=== PATIENT | male | born 1950 | race Caucasian/White ===

== ENCOUNTER → 2023-07-25 10:05 | Outpatient (REF) | payer MEDICARE, OTHER, SELFPAY | LOC: RAD 10:05 | PROVIDERS: ATTENDING PHYSICIAN Nurse Practitioner Family | DX: R05.3 Chronic cough (principal) | CPT/HCPCS: 71046 ==

== ENCOUNTER 2023-10-18 22:11 | Emergency (ER) | payer MEDICARE, OTHER, SELFPAY ==
[2023-10-18 22:13] VITALS: BP 170/97; BMI 27.8
--- NOTE | 2023-10-19 00:28 | ED.GENMED ---
History of Present Illness
General
Chief Complaint: Extremity Pain (non-traumatic)
Source: patient
Exam Limitations: none
Time Seen by Provider: 10/19/23 00:12
Travel History
Have you had any contact with someone who has COVID-19?: No
Do you have any symptoms of coronavirus? Fever > 100 degrees, chills, cough, shortness of breath, sore throat, loss of taste or smell, muscle aches, or headache?: No
History of Present Illness
History of Present Illness:
See MDM
Past History
Past History
ED Past Medical History: Hypercholesterolemia, Hypothyroidism and Other (Kidney stones, history of severe headache, back pain)
ED Past Surgical History: Orthopedic (back surgery)
Social History
Tobacco: Non-smoker
Personal:
Living: with family
Employment: Employed
Phy Exam
Physical Exam
Physical Exam:
See MDM
Course
Vital Signs
Initial and Last Documented VS:
Initial Vital Signs
Temp Pulse Resp BP Pulse Ox
98.2 F 64 18 170/97 98
10/18/23 22:13 10/18/23 22:13 10/18/23 22:13 10/18/23 22:13 10/18/23 22:13
Last Documented Vital Signs
Temp Pulse Resp BP Pulse Ox
98.2 F 64 18 170/97 98
10/18/23 22:13 10/18/23 22:13 10/18/23 22:13 10/18/23 22:13 10/18/23 22:13
MDM/Problems Addressed
Differential Diagnosis Includes:
HPI and MDM Narrative:
72-year-old male presenting with swelling and pain to his left wrist. Patient had carpal tunnel release surgery 3 days ago. He noted the swelling soon after the surgery. He called the on-call surgeon. He was initially given more pain medicine
which is not helping. He is worried about possible infection
Physical exam
General: Well appearing and non-toxic
HEENT: protecting airway
Neck: appears supple
CV: No evidence of cyanosis
Resp: No accessory muscle use
Abd: Non-distended
Extremities: Left wrist incision clean and intact. Proximal erythema with streaking going up left forearm. Distal extremity neurovascular intact. Decreased range of motion secondary to pain
Neuro: alert
Psych: Normal affect
Skin: Erythema to left forearm around carpal tunnel incision
Problems Addressed including Acute and Chronic Conditions affecting care:
1. Postsurgical complication
Acuity: acute
Prognosis: stable
Details: Given the erythema surrounding the incision site, will start Augmentin. Discussed the importance of calling his surgeon first thing tomorrow morning.
Updates
Case discussed with Mellissa orthopedist on-call at [place]. I explained the symptoms and showed a picture of the incision and the erythema and edema. Given the surgery, significant complications less likely. Will err on the side of possible
postsurgical infection and start Augmentin
Differential Diagnosis (but not limited to): Postsurgical infection, postsurgical pain
Testing considered: CT upper extremity
Drug therapy (if applicable): OTC meds, please see d/c instruction regarding Rx drugs
Amount and/or Complexity of Data Reviewed
Clinical info obtained from: Patient
External data reviewed: N/A
Labs I independently reviewed (but not limited to): N/A
Radiology: N/A
Pulse Ox: not hypoxic
EKG independently reviewed: N/A
Talent Analyst: N/A
Critical Care: N/A
Risk of Complication:
Social Determinants of health: Good social support
Discussed with other providers: Orthopedics
Escalation of Care includes Admit/Obs: After being observed in the Emergency Department, pt stable for discharge.
Occasional wrong word or 'sound a like' substitutions may have occurred due to the inherent limitations of voice recognition software. Read the chart carefully and recognize, using context, where substitutions have occurred.
*Critical Care Note
Total Time (30-74mins, 75-104mins- exclusive of procedures): Not Applicable
ED Attending Note
-
Portions of this chart may have been created with voice recognition software.� Occasional wrong word or��sound alike� substitutions may have occurred due to the inherent limitations of voice recognition software.
Discharge Plan
Departure
Patient Disposition: Home (Routine Discharge)
Date of Disposition: 10/19/23
Time of Disposition: 00:39
Patient with high blood pressure during this ER visit?: Yes
Discharge Problem:
Post surgical complication
Instructions: BLOOD PRESSURE
Prescriptions:
New
amoxicillin-pot clavulanate 875-125 mg tablet
1 tab PO BID Qty: 14 0RF
oxycodone 5 mg tablet
5 mg PO Q8H PRN (Reason: Pain) Qty: 14 0RF
No Action
Thyroxine
175 mcg PO DAILY
simvastatin 40 MG tablet
40 mg PO QPM
oxycodone-acetaminophen 1 TABLET tablet
1 - 2 tab PO Q4HPRN PRN (Reason: prn for pain) Qty: 20 0RF
ondansetron 4 MG tablet,disintegrating
4 mg PO Q8 PRN (Reason: prn for nausea and vomiting) Qty: 14 0RF
Activity Restrictions/Additional Instructions:
As we discussed, the swelling and redness is concerning for a postsurgical infection. Please take the antibiotics as prescribed. Your orthopedic surgeon must know that you went to the emergency department. Please call the office first thing
tomorrow morning. Please return for worsening symptoms.
You were given a prescription for narcotics. If you require this pain medicine, please take a daily [id number] stool softener to avoid constipation.
Interventions
Interventions:
*Risk Screen - Suicide Last Done: 10/18/23 22:13
*General Assessment Last Done: 10/19/23 00:25
*Neglect/Abuse Screening Last Done: 10/18/23 22:13
*ED COVID-19 Vaccine History Last Done: 10/19/23 00:25
ED-Skin Assessment Last Done: 10/19/23 00:25
ED-Musculoskeletal Assessment Last Done: 10/19/23 00:25
Discharge Date and Time
Print Language: NIGERIAN
[2023-10-19] MEDS: AUGMENTIN 875 MG/125 MG 1 TABLET PO (00:41)
[2023-10-19] MEDS: TORADOL 30 MG IM (00:46)
[2023-10-19] MEDS: DILAUDID 1 MG IM (00:51)
== END 2023-10-19 01:08 | disposition home or self-care (01) ==
LOC: EMR 22:11
PROVIDERS: EMERGENCY PHYSICIAN Student in an Organized Health Care Education/Training Program
DX: G89.18 Other acute postprocedural pain (principal); M25.532 Pain in left wrist; L76.82 Other postprocedural complications of skin and subcutaneous tissue; Y83.9 Surgical procedure, unspecified as the cause of abnormal reaction of the patient, or of later complication, without mention of misadventure at the time of the procedure; R03.0 Elevated blood-pressure reading, without diagnosis of hypertension
CPT/HCPCS: 99284; 96372 ×2

== ENCOUNTER 2023-10-20 04:24 | Emergency (ER) | payer MEDICARE, OTHER, SELFPAY ==
[2023-10-20 04:28] VITALS: BP 154/68
[2023-10-20] MEDS: ZOFRAN ODT (ORALLY DISINTEGRATING) 4 MG PO (05:03)
--- NOTE | 2023-10-20 05:10 | EDRN ---
Pt had carpal tunnel surgery in [place]. Pt came to this ED Friday night for possible infection. Pt prescribed abx and given oxycodone for pain. Pt says the surgeon prescribed naproxen 500mg q 12 hours and he has been taking that for
the pain. Last oxycodone taken was 1.5 days ago. Pt said he felt better Friday, swelling and pain improved. Around [id number] last night (Friday) pain became 'intolerable.' Pt said he has not been able to sleep and swelling increased. Pt was
instructed to elevate arm and apply ice however pt says he has not done this because it is too painful. Despite 'intolerable' pain, pt did not take oxycodone. says the medication made him nauseous. Pt said he took zofran and oxycodone at
same time. Last dose naproxen was 2200 last night. Pt denies fever/chills/cough. Offered pt a pillow to elevate L arm but pt declined. Pt resting arm on bedside table intermittently. Pt given ice pack and said it hurts too much to use it.
Discussed plan of care with Dr Clement to which pt is agreeable: pt given boxed sandwich meal, saltines and an ODT zofran. Pt will be given oxycodone 5mg PO in approximately 30 minutes.
[2023-10-20] MEDS: ROXICODONE 5 MG PO (05:38)
--- NOTE | 2023-10-20 06:14 | ED.GENMED ---
History of Present Illness
General
Chief Complaint: Post Operative Problem(s)
Source: patient and family
Exam Limitations: none
Time Seen by Provider: 10/20/23 06:00
Nursing documentation reviewed up to this point in time: agreed with
Travel History
Have you had any contact with someone who has COVID-19?: No
Do you have any symptoms of coronavirus? Fever > 100 degrees, chills, cough, shortness of breath, sore throat, loss of taste or smell, muscle aches, or headache?: No
History of Present Illness
History of Present Illness:
Pleasant 72-year-old male that presents with pain from left carpal tunnel surgery that he had on at [facility] at a surgery center in [place]. Patient was seen on Friday for redness and pain. Was started on antibiotic. He states that
his pain started to improve but then returned to a higher level pain yesterday so he came into the emergency department. Denies fever, chills, nausea or vomiting. Reports no chest pain or shortness of breath. Patient was prescribed oxycodone but
did not take it since he felt it would make him nauseated. He also has been taking naproxen with some relief. Reports no other complaints at this time. He does state that the redness at the site has improved greatly
Past History
Past History
ED Past Medical History: Hypercholesterolemia, Hypothyroidism and Other (Kidney stones, history of severe headache, back pain)
ED Past Surgical History: Orthopedic (back surgery)
Social History
Tobacco: Non-smoker
Personal:
Living: with family
Employment: Employed
Review of Systems
Review of Systems
Allergies reviewed?: Yes
All Other Systems: Not applicable
Musculoskeletal: Reports muscle pain
Phy Exam
General Physical Exam
General Presentation: mild distress
General age: appears stated age
General Skin: warm and dry
General Habitus: normal
General Mental: alert and usual mental status
General Hydration: appears well hydrated
Neurological Exam
Neurological Exam: alert and oriented x3
Musculoskeletal Exam
Musculoskeletal Exam: full ROM (No flexion extension deficits.), no edema and neuro vasc intact
Skin Exam
Skin Exam: warm/dry, no rash and other (No erythema)
Psychiatric Exam
Psychiatric Exam: normal mood/affect
Course
Orders/Labs/Results
Orders:
Orders
10/20/23 05:00
Ondansetron Orally Disint [Zofran Odt (Orally Disintegrating)] 4 mg PO NOW STA
10/20/23 05:01
Ondansetron Orally Disint [Zofran Odt (Orally Disintegrating)] 4 mg .ROUTE .STK-MED ONE
10/20/23 05:34
Oxycodone [Roxicodone] 5 mg PO NOW STA
10/20/23 06:14
Ketorolac [Toradol] 30 mg IM NOW STA
Vital Signs
Initial and Last Documented VS:
Initial Vital Signs
Temp Pulse Resp BP Pulse Ox
97.8 F 60 24 154/68 96
10/20/23 04:28 10/20/23 04:28 10/20/23 04:28 10/20/23 04:28 10/20/23 04:28
Last Documented Vital Signs
Temp Pulse Resp BP Pulse Ox
97.8 F 60 14 136/61 96
10/20/23 04:28 10/20/23 06:27 10/20/23 06:27 10/20/23 06:27 10/20/23 06:27
*Critical Care Note
Total Time (30-74mins, 75-104mins- exclusive of procedures): Not Applicable
ED Attending Note
-
Portions of this chart may have been created with voice recognition software.� Occasional wrong word or��sound alike� substitutions may have occurred due to the inherent limitations of voice recognition software.
Discharge Plan
Departure
Patient Disposition: Home (Routine Discharge)
Date of Disposition: 10/20/23
Time of Disposition: 06:18
Patient with high blood pressure during this ER visit?: Yes
Discharge Problem:
Post-operative pain
Instructions: Muscle and Bone Pain (DC), Postoperative Pain (DC)
Prescriptions:
No Action
Thyroxine
175 mcg PO DAILY
simvastatin 40 MG tablet
40 mg PO QPM
ondansetron 4 MG tablet,disintegrating
4 mg PO Q8 PRN (Reason: prn for nausea and vomiting) Qty: 14 0RF
amoxicillin-pot clavulanate 875-125 mg tablet
1 tab PO BID Qty: 14 0RF
oxycodone 5 mg tablet
5 mg PO Q8H PRN (Reason: Pain) Qty: 14 0RF
naproxen 500 mg Tablet
500 mg PO Q12H
Referrals:
[facility] [Provider Group] - Keep scheduled appt
NONE,* [Family Provider] -
Activity Restrictions/Additional Instructions:
Please follow-up with Mellissa at your previously scheduled appointment today
It was a pleasure meeting you and taking part in your care. We hope for your continued healing and wellness.
Please read discharge instructions in their entirety. However, they are for general education and may not describe your exact diagnosis at discharge. Information on your ER visit and medical conditions were discussed with you along with appropriate
follow up information...
If indicated, please take your medications as instructed and indicated on discharge paperwork.
Please schedule a follow up appointment as directed. Call to schedule an appointment
Please return to the emergency department with ANY change in, persisting, or worsening of symptoms. If any of your symptoms do not improve, or persist, or become more severe within 6-12 hours, please return to the emergency department for further
care.
Please return to the emergency department if you develop a headache, neck pain/stiffness, fever greater than 100.4F, chest pain, shortness of breath, persistent nausea, vomiting, slurred speech, difficulty walking, numbness/tingling, weakness, signs
of infection or any other symptoms that are worrisome to you.
If you have any questions or concerns please do not hesitate to call the Hospital at or E-mail me directly at [email or web address]
Interventions
Interventions:
*Risk Screen - Suicide Last Done: 10/20/23 04:28
*General Assessment Last Done: 10/20/23 05:06
*Neglect/Abuse Screening Last Done: 10/20/23 04:28
*ED COVID-19 Vaccine History Last Done: 10/20/23 04:43
*Nursing Disposition Last Done: 10/20/23 06:30
ED-Skin Assessment Last Done: 10/20/23 05:06
Discharge Date and Time
Discharge Date/Time: 10/20/23 06:30
Print Language: TURKISH
[2023-10-20] MEDS: TORADOL 30 MG IM (06:18)
[2023-10-20 06:27] VITALS: BP 136/61
== END 2023-10-20 06:30 | disposition home or self-care (01) ==
LOC: EMR 04:24
PROVIDERS: EMERGENCY PHYSICIAN Student in an Organized Health Care Education/Training Program
DX: G89.18 Other acute postprocedural pain (principal); M25.532 Pain in left wrist; M25.432 Effusion, left wrist; M79.10 Myalgia, unspecified site; R03.0 Elevated blood-pressure reading, without diagnosis of hypertension; E78.00 Pure hypercholesterolemia, unspecified; E03.9 Hypothyroidism, unspecified; Z87.442 Personal history of urinary calculi; Z88.8 Allergy status to other drugs, medicaments and biological substances
CPT/HCPCS: 99284; 96372

== ENCOUNTER → 2025-02-04 15:16 | Outpatient (REF) | payer MEDICARE, OTHER, SELFPAY | LOC: RAD 15:16 | PROVIDERS: ATTENDING PHYSICIAN Internal Medicine | DX: R11.0 Nausea (principal) | CPT/HCPCS: 74177; Q9967 ==